=== PATIENT | male | born 1955 | race Caucasian/White ===

== ENCOUNTER → 2020-06-13 | Outpatient (CLI) | payer MEDICARE, OTHER ==
[~2020-06-13] VITALS: Ht 182 cm; Wt 84.0 kg
[~2020-06-13] MED LIST: CATHETER FLUSH 10 ML SYR IV PRN
[2020-06-13 13:43] VITALS: BP 171/80
[2020-06-13 13:59] VITALS: BP 175/57
--- NOTE | 2020-06-13 15:59 | Cardiology Stress Test Report ---
Stress Test Report Date of Procedure/Referring: Date of Procedure: Jun 13, 2020 PCP Shobha Mo Admitting Physician No,Local Physician Indications: Coronary artery disease Baseline Heart Rate: 78 Baseline Blood Pressure: Blood Pressure Systolic: 175 Blood Pressure Diastolic: 57 Vital Signs Date Time Temp Pulse Resp B/P (MAP) Pulse Ox O2 Delivery O2 Flow Rate FiO2 06/13/20 13:43 74 19 171/80 (110) 99 06/13/20 13:59 Room Air Baseline Vital Signs Vital Signs Date Time Temp Pulse Resp B/P (MAP) Pulse Ox O2 Delivery O2 Flow Rate FiO2 06/13/20 13:43 74 19 171/80 (110) 99 06/13/20 13:59 Room Air Baseline EKG: Baseline EKG: normal sinus rhythm Summary: After explaining the procedure and details to the patient, he signed the consent and was brought to the stress nuclear laboratory. Patient exercised on standard John protocol, EKG, heart rate and blood pressure were monitored continuously, resting and stress doses of radio tracer were injected, imaging was acquired and reviewed in the short axis, horizontal long axis and vertical long axis views Patient was able to exercise for a total of [ 8] minutes on John protocol, METs 9.7 Maximum heart rate 136 Maximum blood pressure 225/80 Stress EKG, Minimal nondiagnostic changes Recovery EKG, Return to baseline TID: 0.8 SSS: 1 SDS: 1 EF: 56 Conclusion: 1. Fair exercise tolerance for total of 8 minutes on standard John protocol total of 9.7 METs achieving 88 percent of maximum expected heart rate 2. Severe hypertensive response to exercise with peak blood pressure 225/80 returned to baseline during recovery 3. Minimal nondiagnostic EKG changes with exercise returned to baseline during recovery 4. No ischemia or infarction on SPECT images 5. Normal left ventricular size, EF 56 percent LEONARDO CALHOUN MD Jun 13, 2020 15:59
== END ==
LOC: CARD 12:00
PROVIDERS: ATTEND Physician Assistant
DX: I25.10 Atherosclerotic heart disease of native coronary artery without angina pectoris (principal); I65.23 Occlusion and stenosis of bilateral carotid arteries; I10 Essential (primary) hypertension; E78.2 Mixed hyperlipidemia; Z72.0 Tobacco use
CPT/HCPCS: 78452; 93017; 93306; A9502

== ENCOUNTER → 2021-06-12 | Outpatient (CLI) | payer MEDICARE, OTHER ==
[~2021-06-12] VITALS: Ht 183 cm; Wt 84.0 kg
[2021-06-12 11:14] LABS: ALBUMIN 4.5 GM/DL (3.2-4.5); POTASSIUM 4.7 MMOL/L (3.6-5.0)
[2021-06-12 11:15] LABS: CALCIUM 10.3 MG/DL (8.5-10.1)
[2021-06-12 11:16] LABS: TOTAL PROTEIN 7.8 GM/DL (6.4-8.2)
[2021-06-12 11:18] LABS: BILIRUBIN,TOTAL 0.4 MG/DL (0.1-1.0)
[2021-06-12 11:20] LABS: CREATININE SERUM 0.97 MG/DL (0.60-1.30)
[2021-06-12 13:02] VITALS: BP 163/82
--- NOTE | 2021-06-12 15:10 | Cardiology Stress Test Report ---
Stress Test Report Date of Procedure/Referring: Date of Procedure: Jun 12, 2021 PCP Leonardo Stanley MD Admitting Physician No,Local Physician Indications: CP Baseline Heart Rate: 71 Baseline Blood Pressure: Blood Pressure Systolic: 163 Blood Pressure Diastolic: 82 Vital Signs Date Time Temp Pulse Resp B/P (MAP) Pulse Ox O2 Delivery O2 Flow Rate FiO2 06/12/21 13:02 79 18 163/82 (109) 97 Room Air Baseline Vital Signs Vital Signs Date Time Temp Pulse Resp B/P (MAP) Pulse Ox O2 Delivery O2 Flow Rate FiO2 06/12/21 13:02 79 18 163/82 (109) 97 Room Air Baseline EKG: Baseline EKG: NSR Summary: After explaining the procedure and details to the patient, he signed the consent and was brought to the stress nuclear laboratory. Patient exercised on standard John protocol, EKG, heart rate and blood pressure were monitored continuously, resting and stress doses of radio tracer were injected, imaging was acquired and reviewed in the short axis, horizontal long axis and vertical long axis views Patient was able to exercise for a total of 8 minutes on John protocol, METs 8.7 Maximum heart rate 127 Maximum blood pressure 215/76 Stress EKG, Minimal nondiagnostic changes Recovery EKG, Return to baseline TID: 0.8 SSS: 13 SDS: 9 EF: 56 Conclusion: 1. Fair exercise tolerance for a total of 8 minutes on standard John protocol, 8.7 METS achieving 83% of maximal expected heart rate 2. Abnormal EKG response to exercise with [address] depression horizontal in lead II, 3, aVF, V4, V5, V6. Return to baseline during late recovery 3. Severe hypertensive response to exercise with peak blood pressure 215/76, return to baseline during recovery 4. Reversible ischemia involving the whole inferior wall and inferolateral wall 5. Normal left ventricular size, EF 56% LEONARDO STANLEY MD Jun 12, 2021 15:10
== END ==
LOC: CARD 10:30
PROVIDERS: ATTEND Internal Medicine Cardiovascular Disease
DX: R07.9 Chest pain, unspecified (principal); I10 Essential (primary) hypertension
CPT/HCPCS: 78452; 80053; 80061; 93017; 93306; A9502; 36415

== ENCOUNTER 2021-06-19 11:00 | Day surgery (SDC) | payer MEDICARE, OTHER ==
[~2021-06-19] VITALS: Ht 185 cm; Wt 87.5 kg
[2021-06-19] VITALS (20 sets, daily range): BP systolic 141–208; BP diastolic 73–122
--- OUTSIDE RECORDS SUMMARY | 2021-06-19 08:48 | XMS REPORT ---
Author Author Maximiliano Levine Organization [facility] ou Address [address] [place], [place] [id number] Care Team Providers Care Cosmetic Assembler Name Role Phone Maximiliano Levine PCP Maximiliano Levine PreferredProvider Allergies and Adverse Reactions Name Reaction Notes NO KNOWN DRUG ALLERGIES Plan of Treatment Not available. Medications Active Name Start Date Estimated Completion Date SIG Co mments aspirin 81 mg oral tablet,delayed release (DR/EC) take 2 tablets (162 mg) by oral route once daily atenolol 25 mg oral tablet take 1 tablet (25 mg) by oral route once daily amlodipine 5 mg oral tablet take 1 tablet (5 mg) by oral route once daily Bevespi Aerosphere 9-4.8 mcg inhalation HFA aerosol inhaler 2017 inhale 2 puffs by inhalation route 2 times per day in the morning and evening Symbicort 160-4.5 mcg/actuation inhalation HFA aerosol inhaler inhale 2 puffs by inhalation route 2 times per day in the morning and evening lidocaine 5 % topical cream 02/02/2020 appl y to affected area(s) by topical route daily as needed cyclobenzaprine 10 mg oral tablet 02/02/2020 take 1 tablet by oral route 3 times a day lidocaine 5%, ketoprofen 10 % 05/02/2020 apply bid losartan 25 mg oral tablet 11/22/2020 11/17/2021 TAKE ONE TABLET BY MOUTH ONCE DAILY Vitamin C 1,000 mg oral tablet take 1 tab let by oral route daily Celebrex oral capsule 200 mg 01/03/2021 12/29/2021 faustina e 1 capsule (200 mg) by oral route once daily for 30 days clopidogrel 75 mg tablet 01/21/2021 04/16/2022 TAKE 1 TABLET BY MOUTH ONCE DAILY FOR 90 DAYS atorvastatin 40 mg tablet 01/21/2021 04/16/2022 TAKE 1 TABLET BY MOUTH ONCE DAILY FOR 90 DAYS hydrocodone-acetaminophen 10-325 mg oral tablet 04/17/2021 take 1 tablet by oral route every 4 hours as needed for pain ivermectin 3 mg oral tablet 05/09/2021 08/02/2022 TAKE SIX TABLETS BY MOUTH every SEVEN DAYS Name Start Date Expiration Date SIG Comments Medrol (George) 4 mg oral tablets,dose pack 11/18/2010 11/29/19 take as directed for 5 days meloxicam 15 mg oral tablet 06/03/2011 10/31/2011 take 1 tablet (15 mg) by oral route once daily /PRN pain Levaquin 500 mg oral tablet 07/21/2011 08/04/2011 take 1 tablet (500 mg) by oral route once daily for 7 days flurbiprofen 100 mg oral tablet 12/09/2011 12/03/2012 take 1 tablet (100 mg) by oral route 2 times per day for 90 days gentian beverly 1 % topical solution 12/09/2011 12/16/2011 apply to affected area by topical route 2 times a day for 7 days Nexium 40 mg oral capsule,delayed release(DR/EC) 10/15/2012 10/15/2012 take 1 capsule by oral route 2 times a day Protonix tablet 40 mg 11/03/2012 12/03/2012 one tablet twice da shanta pantoprazole 40 mg oral tablet,delayed release (DR/EC) 12/06/2012 01/05/2013 TAKE 1 TABLET BY MOUTH TWICE DAILY Carafate 1 gram oral tablet 01/04/2013 01/19/2013 take 1 tablet (1 gram) by oral route 4 times per day on an empty stomach 1 hour before meals and at bedtime for 15 days Zofran (as hydrochloride) 4 mg oral tablet 03/22/20132012 take 2 tablets (8 mg) by oral route every 12 hours for 2 days Lidoderm 5 % topical adhesive patch,medicated 02/16/2014 apply 2 patches by transdermal route once daily (May wear up to 12hours.) for 30 days Zithromax Z-George 250 mg oral tablet 05/17/2014 05/22/2014 take 2 tablets (500 mg) by oral route once daily for 1 day then 1 tablet (250 mg) by oral route once daily for 4 days Mobic 15 mg oral tablet 09/21/2014 10/21/2014 take 1 t ablet (15 mg) by oral route once daily for 30 days Levaquin 500 mg oral tablet 01/04/2016 01/11/2016 take 1 tablet (500 mg) by oral route once daily for 7 days Dexilant 60 mg oral capsule,biphase delayed releas 05/15/2016 05/25/2016 take 1 capsule (60 mg) by oral route once daily for 10 days simethicone oral docusate sodium 100 mg oral capsule Lipitor 40 mg oral tablet 06/05/2016 10/03/2016 take 1 tablet (40 mg) by oral route once daily for 30 days Levaquin 500 mg oral tablet 10/09/2016 10/16/2016 take 1 tablet (500 mg) by oral route once daily for 7 days Zithromax Z-George 250 mg oral tablet 04/09/2017 04/14/2017 take 2 tablets (500 mg) by oral route once daily for 1 day then 1 tablet (250 mg) by oral route once daily for 4 days [place] 10-325 mg oral tablet 01/25/2019 take 1 tablet by oral route every 4 hours as needed for pain Lipitor 40 mg oral tablet 11/01/2019 01/24/2021 take 1 tablet (40 mg) by oral route once daily for 90 days nystatin-triamcinolone 100,000-0.1 unit/gram-% topical ointm ent 11/01/2019 04/17/2020 apply to the affected area(s) by topical route 2 times per day for 14 days Plavix 75 mg oral tablet 11/01/2019 01/24/2021 take 1 tablet (75 mg) by oral route once daily for 90 days Discontinued Name Start Date Discontinued Date SIG Comments diclofenac sodium 75 mg oral tablet,delayed release (DR/EC) 07/27/2009 take 1 tablet (75 mg) by oral route 2 times per day PRN pain UPSETTING PT'S STOMACH cyclobenzaprine 10 mg oral tablet 04/30/2010 1/2 - 1 tab BID prn pain Motrin 800 mg oral tablet 02/01/2010 06/03/2011 take 1 tablet (800 mg) by oral route 3 times per day with food lisinopril 10 mg oral tablet 02/01/2010 04/30/2010 faustina e 1 tablet (10 mg) by oral route once daily nystatin-triamcinolone 100,000-0.1 unit/g-% topical cream 04/12/20 10 12/09/2011 apply to the affected area(s) by topical route 2 times per day in the morning and evening Lortab 5-500 mg oral tablet 12/09/2011 take 1 tablet by oral route every 6 hours as needed for pain Cortisporin 3.5-10,000-1 mg/mL-unit/mL-% otic solution 05/29/2011 05/29/2011 instill 4 drops into affected ear(s) by otic route 3 times per day deleted Lamisil 250 mg oral tablet 07/15/2011 12/09/2011 take 1 tablet (250 mg) by oral route once daily nystatin-triamcinolone 100,000-0.1 unit/g-% topical cream 12/09/19 12 05/17/2014 apply to the affected area(s) by topical route 2 times per day in the morning and evening hydrocodone-acetaminophen 5-500 mg oral tablet 03/02/201209/11/2011 TAKE 1 TABLET BY MOUTH EVERY 6 HOURS NEEDED FOR PAIN Taking Percocet Protonix 40 mg Oral tablet,delayed release (DR/EC) 11/03/2012 11/03/2012 one tablet twice daily deleted prednison 03/22/2013 05/17/2014 60 x 3, 40 x 3, 20 x 3, 10 x 4 meclizine 25 mg oral tablet 04/08/2013 05/17/2014 take 1 tablet (25 mg) by oral route 4 times per day as needed ondansetron HCl 4 mg oral tablet 03/23/2014 01/09/2015 TAKE 1 TABLET BY MOUTH EVERY 4 HOURS NEEDED FOR NAUSEA ofloxacin 0.3 % otic drops 05/05/2014 05/17/2014 insti ll 10 drops (1.5 mg) into right ear by otic route 2 times per day Percocet 10-325 mg oral tablet 07/27/2014 09/22/2014 t isela 1 tablet by oral route every 6 hours as needed Pennsaid 1.5 % topical drops 09/21/2014 12/11/2014 annelise ly 40 drops to the right knee by topical route 4 times per day clonidine HCl 0.1 mg oral tablet 01/09/2015 09/04/2015 take 1 tablet (0.1 mg) by oral route once daily Valium 5 mg oral tablet 01/09/2015 09/04/2015 take 1 t ablet by oral route 2 times a day as needed promethazine-codeine 6.25-10 mg/5 mL oral syrup 01/04/2016 12/03/2017 take 5 milliliters by oral route every 6 hours as needed, not to exceed 30 mL in 24 hours Augmentin 875-125 mg oral tablet 09/15/2017 12/03/2017 take 1 tablet by oral route every 12 hours for 7 days Bevespi Aerosphere 9-4.8 mcg inhalation HFA aerosol inhaler 01/2802/09/2018 INHALE 2 PUFFS TWICE DAILY IN THE MORNING AND EVENING Problem List Description Status Onset Shoulder Syndrome Active 07/27/2009 Bicipital tenosynovitis Active 07/27/2009 Dyspepsia Active 05/20/2016 Gas Active 05/20/2016 Bloating Active 05/20/2016 Hiatal hernia Active 05/20/2016 Abdominal pain Active 05/20/2016 Encounter for screening colonoscopy Active 05/08 Vital Signs Date Time BP-Sys(mm[Hg] BP-Noemi(mm[Hg]) HR(bpm) RR(rpm) Temp WT HT HC BMI BSA BMI Percentile O2 Sat(%) 05/09/2021 1:21:00 PM 160 mm[Hg] 80 mm[Hg] 96 {beats}/min 20 rpm 97.7 F 194.5 lbs 72 in 26.3787 kg/m2 2.117 m2 97 % 03/07/2021 1:26:00 PM 138 mm[Hg] 70 mm[Hg] 92 {beats}/min 20 rpm 97.9 F 194.5 lbs 72 in 26.38 kg/m2 2.12 m2 97 % 01/03/2021 3:08:00 PM 130 mm[Hg] 70 mm[Hg] 91 {beats}/min 18 rpm 97.7 F 190 lbs 72 in 25.7684 kg/m2 2.0924 m2 97 % 12/13/2020 1:33:00 PM 140 mm[Hg] 84 mm[Hg] 82 {beats}/min 20 rpm 98.2 F 194.25 lbs 72 in 26.34 kg/m2 2.12 m2 97 % 10/01/2020 1:46:00 PM 140 mm[Hg] 82 mm[Hg] 96 {beats}/min 16 rpm 97.7 F 194 lbs 72 in 26.3109 kg/m2 2.1143 m2 97 % 07/26/2020 9:59:00 AM 162 mm[Hg] 80 mm[Hg] 92 {beats}/min 18 rpm 97.9 F 193.125 lbs 72 in 26.19 kg/m2 2.11 m2 97 % 05/01/2020 9:43:00 AM 180 mm[Hg] 78 mm[Hg] 92 {beats}/min 18 rpm 98.6 F 190.375 lbs 72 in 25.8192 kg/m2 2.0945 m2 98 % 02/02/2020 10:23:00 AM 158 mm[Hg] 90 mm[Hg] 88 {beats}/min 18 rpm 96.4 F 193.25 lbs 72 in 26.21 kg/m2 2.11 m2 98 % 11/01/2019 3:07:00 PM 138 mm[Hg] 80 mm[Hg] 81 {beats}/min 18 rpm 98.1 F 193 lbs 72 in 26.1752 kg/m2 2.1088 m2 96 % 08/18/2019 2:12:00 PM 120 mm[Hg] 70 mm[Hg] 90 {beats}/min 18 rpm 97.9 F 196.25 lbs 72 in 26.62 kg/m2 2.13 m2 96 % 06/03/2019 10:57:00 AM 148 mm[Hg] 88 mm[Hg] 99 {beats}/min 18 rpm 98.8 F 190.125 lbs 72 in 25.7853 kg/m2 2.0931 m2 98 % 04/12/2019 10:21:00 AM 142 mm[Hg] 78 mm[Hg] 82 {beats}/min 16 rpm 98.1 F 193 lbs 72 in 26.18 kg/m2 2.11 m2 97 % 02/08/2019 2:27:00 PM 120 mm[Hg] 70 mm[Hg] 99 {beats}/min 18 rpm 97.5 F 199.125 lbs 72 in 27.0059 kg/m2 2.142 m2 95 % 12/27/2018 2:15:00 PM 120 mm[Hg] 72 mm[Hg] 77 {beats}/min 16 rpm 97.5 F 202 lbs 72 in 27.40 kg/m2 2.16 m2 96 % 10/11/2018 10:55:00 AM 140 mm[Hg] 86 mm[Hg] 82 {beats}/min 16 rpm 97.7 F 202 lbs 72 in 27.3958 kg/m2 2.1575 m2 97 % 07/23/2018 9:24:00 AM 122 mm[Hg] 72 mm[Hg] 96 {beats}/min 16 rpm 98.1 F 201 lbs 73 in 26.52 kg/m2 2.17 m2 98 % 04/15/2018 10:16:00 AM 128 mm[Hg] 84 mm[Hg] 81 {beats}/min 18 rpm 98.2 F 198.125 lbs 72 in 26.8703 kg/m2 2.1367 m2 95 % 01/18/2018 11:04:00 AM 158 mm[Hg] 90 mm[Hg] 80 {beats}/min 18 rpm 98.1 F 98 % 12/03/2017 10:26:00 AM 122 mm[Hg] 70 mm[Hg] 75 {beats}/min 16 rpm 96.6 F 191.25 lbs 72 in 25.9379 kg/m2 2.0993 m2 97 % 09/15/2017 10:13:00 AM 118 mm[Hg] 80 mm[Hg] 91 {beats}/min 20 rpm 96.3 F 193.5 lbs 72 in 26.24 kg/m2 2.11 m2 97 % 08/21/2017 10:32:00 AM 112 mm[Hg] 74 mm[Hg] 93 {beats}/min 20 rpm 97.6 F 190.25 lbs 72 in 25.8023 kg/m2 2.0938 m2 97 % 06/09/2017 9:08:00 AM 138 mm[Hg] 74 mm[Hg] 78 {beats}/min 18 rpm 96.3 F 190.5 lbs 72 in 25.84 kg/m2 2.10 m2 98 % 03/17/2017 2:23:00 PM 102 mm[Hg] 50 mm[Hg] 57 {beats}/min 14 rpm 96.8 F 190 lbs 72 in 25.7684 kg/m2 2.0924 m2 97 % 01/05/2017 3:09:00 PM 98 mm[Hg] 62 mm[Hg] 68 {beats}/min 18 rpm 96.1 F 1 89 lbs 72 in 25.63 kg/m2 2.09 m2 98 % 10/02/2016 10:42:00 AM 116 mm[Hg] 68 mm[Hg] 79 {beats}/min 18 rpm 96.9 F 186.4 lbs 72 in 25.2801 kg/m2 2.0725 m2 96 % 08/20/2016 10:37:00 AM 128 mm[Hg] 62 mm[Hg] 88 {beats}/min 18 rpm 97.6 F 186 lbs 72 in 25.23 kg/m2 2.07 m2 96 % 06/05/2016 9:38:00 AM 126 mm[Hg] 80 mm[Hg] 69 {beats}/min 18 rpm 98 F 188 lbs 72 in 25.4971 kg/m2 2.0813 m2 98 % 05/20/2016 2:18:00 PM 125 mm[Hg] 89 mm[Hg] 92 {beats}/min 20 rpm 97.4 F 189.5 lbs 72 in 25.70 kg/m2 2.09 m2 05/15/2016 8:25:00 AM 124 mm[Hg] 80 mm[Hg] 88 {beats}/min 18 rpm 97 F 193 lbs 72 in 26.1752 kg/m2 2.1088 m2 97 % 03/24/2016 2:38:00 PM 110 mm[Hg] 74 mm[Hg] 78 {beats}/min 18 rpm 96.8 F 182 lbs 72 in 24.68 kg/m2 2.05 m2 97 % 02/28/2016 10:05:00 AM 118 mm[Hg] 76 mm[Hg] 68 {beats}/min 71 rpm 97.1 F 180 lbs 72 in 24.4121 kg/m2 2.0366 m2 97 % 01/04/2016 8:56:00 AM 124 mm[Hg] 82 mm[Hg] 92 {beats}/min 18 rpm 96.1 F 180 lbs 72 in 24.41 kg/m2 2.04 m2 96 % 12/10/2015 8:51:00 AM 136 mm[Hg] 82 mm[Hg] 68 {beats}/min 18 rpm 97.2 F 183 lbs 18 % 09/06/2015 8:35:00 AM 112 mm[Hg] 62 mm[Hg] 76 {beats}/min 18 rpm 96.5 F 183 lbs 72 in 24.819 kg/m2 2.0535 m2 96 % 09/04/2015 8:47:00 AM 118 mm[Hg] 74 mm[Hg] 90 {beats}/min 18 rpm 96.4 F 183 lbs 72 in 24.82 kg/m2 2.05 m2 96 % 06/21/2015 8:51:00 AM 130 mm[Hg] 80 mm[Hg] 93 {beats}/min 16 rpm 97.8 F 183 lbs 72 in 24.819 kg/m2 2.0535 m2 97 % 05/11/2015 10:39:00 AM 135 mm[Hg] 90 mm[Hg] 77 {beats}/min 16 rpm 98.1 F 184 lbs 72 in 24.95 kg/m2 2.06 m2 95 % 02/05/2015 8:56:00 AM 122 mm[Hg] 84 mm[Hg] 88 {beats}/min 18 rpm 96.7 F 195 lbs 72 in 26.4465 kg/m2 2.1197 m2 01/09/2015 9:12:00 AM 158 mm[Hg] 94 mm[Hg] 84 {beats}/min 18 rpm 97.1 F 193 lbs 72 in 26.18 kg/m2 2.11 m2 12/11/2014 3:19:00 PM 126 mm[Hg] 64 mm[Hg] 83 {beats}/min 18 rpm 97.4 F 193.125 lbs 72 in 26.1922 kg/m2 2.1095 m2 96 % 09/21/2014 1:39:00 PM 124 mm[Hg] 72 mm[Hg] 106 {beats}/min 18 rpm 97.2 F 195 lbs 72 in 26.45 kg/m2 2.12 m2 97 % 07/27/2014 8:41:00 AM 140 mm[Hg] 92 mm[Hg] 90 {beats}/min 18 rpm 96.1 F 192.125 lbs 73 in 25.3476 kg/m2 2.1186 m2 99 % 05/17/2014 3:14:00 PM 138 mm[Hg] 78 mm[Hg] 76 {beats}/min 18 rpm 96.9 F 195.125 lbs 73 in 25.74 kg/m2 2.14 m2 97 % 05/05/2014 9:11:00 AM 140 mm[Hg] 90 mm[Hg] 72 {beats}/min 18 rpm 98 F 192 lbs 73 in 25.3311 kg/m2 2.1179 m2 02/16/2014 8:34:00 AM 136 mm[Hg] 78 mm[Hg] 84 {beats}/min 18 rpm 97.1 F 191 lbs 73 in 25.20 kg/m2 2.11 m2 12/01/2013 2:51:00 PM 122 mm[Hg] 78 mm[Hg] 78 {beats}/min 16 rpm 98 F 197 lbs 73 in 25.9908 kg/m2 2.1453 m2 09/16/2013 8:32:00 AM 132 mm[Hg] 80 mm[Hg] 88 {beats}/min 18 rpm 97.8 F 190 lbs 73 in 25.07 kg/m2 2.11 m2 06/23/2013 1:26:00 PM 120 mm[Hg] 80 mm[Hg] 80 {beats}/min 18 rpm 97.7 F 187 lbs 73 in 24.6714 kg/m2 2.0902 m2 04/08/2013 11:01:00 AM 102 mm[Hg] 70 mm[Hg] 78 {beats}/min 18 rpm 97.5 F 180 lbs 73 in 23.75 kg/m2 2.05 m2 98 % 03/22/2013 3:08:00 PM 92 mm[Hg] 64 mm[Hg] 94 {beats}/min 20 rpm 97.1 F 177 lbs 73 in 23.3521 kg/m2 2.0335 m2 02/21/2013 9:13:00 AM 130 mm[Hg] 78 mm[Hg] 68 {beats}/min 16 rpm 97.4 F 191 lbs 73 in 25.20 kg/m2 2.11 m2 01/06/2013 3:06:00 PM 110 mm[Hg] 64 mm[Hg] 60 {beats}/min 18 rpm 97.4 F 183 lbs 73 in 24.1437 kg/m2 2.0677 m2 11/03/2012 3:26:00 PM 120 mm[Hg] 80 mm[Hg] 85 {beats}/min 18 rpm 96.1 F 184.5 lbs 73 in 24.34 kg/m2 2.08 m2 96 % 09/28/2012 3:15:00 PM 120 mm[Hg] 80 mm[Hg] 69 {beats}/min 18 rpm 96.6 F 183 lbs 73 in 24.1437 kg/m2 2.0677 m2 99 % 09/27/2012 10:00:00 AM 112 mm[Hg] 82 mm[Hg] 60 {beats}/min 18 rpm 98 F 182 lbs 73 in 24.01 kg/m2 2.06 m2 06/30/2012 2:13:00 PM 145 mm[Hg] 98 mm[Hg] 68 {beats}/min 18 rpm 04/13/2012 1:41:00 PM 96 mm[Hg] 60 mm[Hg] 88 {beats}/min 18 rpm 98.1 F 1 82 lbs 73 in 24.0118 kg/m2 2.062 m2 03/11/2012 3:58:00 PM 114 mm[Hg] 76 mm[Hg] 68 {beats}/min 18 rpm 98.4 F 184 lbs 73 in 24.28 kg/m2 2.07 m2 12/09/2011 2:00:00 PM 124 mm[Hg] 82 mm[Hg] 60 {beats}/min 18 rpm 97.8 F 183 lbs 73 in 24.1437 kg/m2 2.0677 m2 07/21/2011 2:15:00 PM 108 mm[Hg] 70 mm[Hg] 68 {beats}/min 20 rpm 97.8 F 182 lbs 07/15/2011 2:51:00 PM 118 mm[Hg] 82 mm[Hg] 78 {beats}/min 18 rpm 97.8 F 182 lbs 73 in 24.0118 kg/m2 2.062 m2 06/03/2011 1:30:00 PM 130 mm[Hg] 80 mm[Hg] 64 {beats}/min 16 rpm 97 F 183.25 lbs 73 in 24.18 kg/m2 2.07 m2 05/29/2011 3:10:00 PM 102 mm[Hg] 64 mm[Hg] 60 {beats}/min 18 rpm 98.4 F 184 lbs 03/13/2011 1:57:00 PM 132 mm[Hg] 88 mm[Hg] 78 {beats}/min 20 rpm 98.2 F 180 lbs 78 in 20.8009 kg/m2 2.1197 m2 01/21/2011 8:59:00 AM 108 mm[Hg] 70 mm[Hg] 78 {beats}/min 20 rpm 97.9 F 185 lbs 11/18/2010 2:01:00 PM 142 mm[Hg] 88 mm[Hg] 72 {beats}/min 20 rpm 98.4 F 187 lbs 04/30/2010 7:53:00 AM 124 mm[Hg] 76 mm[Hg] 78 {beats}/min 16 rpm 97.8 F 182.25 lbs 04/12/2010 8:51:00 AM 140 mm[Hg] 88 mm[Hg] 68 {beats}/min 20 rpm 98.2 F 185 lbs 02/01/2010 9:05:00 AM 150 mm[Hg] 102 mm[Hg] 80 {beats}/min 18 rpm 97.3 F 192.375 lbs 73 in 25.3806 kg/m2 2.12 m2 07/27/2009 7:52:00 AM 142 mm[Hg] 80 mm[Hg] 64 {beats}/min 14 rpm 96.4 F 192 lbs Social History Name Description Comments lives alone Occasional Exercise x 8yrs High school graduate Denies illicit substance abuse Has never used alcohol 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 Tobacco Current every day smoker History of Procedures Date Ordered Description Order Status 06/21/2015 12:00 AM COMPLETE CBC W/AUTO DIFF WBC Reviewed 06/21/2015 12:00 AM COMPREHEN METABOLIC PANEL Reviewed 06/21/2015 12:00 AM LIPID PANEL Reviewed 06/03/2011 12:00 AM INJ TENDON SHEATH/LIGAMENT Reviewed 06/03/2011 12:00 AM Kenalog per 10Mg Im-[facility]#[address]-47(Da vis) Reviewed 09/04/2015 12:00 AM X-RAY EXAM OF SHOULDER Reviewed 09/04/2015 12:00 AM RADIOLOGIC EXAMINATION KNEE 1/2 VIEWS Re viewed 07/15/2011 12:00 AM COMPLETE CBC W/AUTO DIFF WBC Reviewed 07/15/2011 12:00 AM COMPREHEN METABOLIC PANEL Reviewed 07/15/2011 12:00 AM GLYCOSYLATED HEMOGLOBIN TEST Reviewed 07/15/2011 12:00 AM Depo-Medrol 80 Mg ND [id number] robert Reviewed 07/15/2011 12:00 AM Decadron Inj. per 1mg-Nd [id number] hennyinger Reviewed 07/15/2011 12:00 AM Prostate Cancer Screening Reviewed 12/10/2015 12:00 AM Decadron, Per 1 Mg [facility]# [address]-92 Re viewed 12/10/2015 12:00 AM Depo-Medrol, Per 80 Mg [facility]#[address]-17 Reviewed 01/04/2016 12:00 AM Rocephin 1 gram [facility]#6007-1210-02 Reviewe d 01/04/2016 12:00 AM Kenalog, Per 10 Mg [facility]#2033-5311-28 Revi ewed 03/24/2016 12:00 AM COMPLETE CBC W/AUTO DIFF WBC Reviewed 03/24/2016 12:00 AM COMPREHEN METABOLIC PANEL Reviewed 03/24/2016 12:00 AM ASSAY THYROID STIM HORMONE Reviewed 03/24/2016 12:00 AM VITAMIN B-12 Reviewed 03/24/2016 12:00 AM ASSAY OF LIPASE Reviewed 05/15/2016 12:00 AM CHEST X-RAY 2VW FRONTAL&LATL Reviewed 05/20/2016 12:00 AM ECHO EXAM OF ABDOMEN Reviewed 08/20/2016 12:00 AM Decadron 8mg Injection, [facility] Medicare Rev iewed 08/20/2016 12:00 AM Depo-Medrol 80 Mg Injection, [facility] Medicai d Reviewed 04/13/2012 12:00 AM Kenalog 40 Mg Im/C'melita Reviewed 08/22/2012 12:00 AM INJ TENDON SHEATH/LIGAMENT Reviewed 08/22/2012 12:00 AM Kenalog per 10Mg Im-[facility]#[address]-28(Da vis) Reviewed 01/18/2018 12:00 AM Decadron 8mg Injection Reviewed 01/18/2018 12:00 AM Depo-Medrol 80mg Injection Reviewed 04/15/2018 12:00 AM B12 1000mcg Injection Reviewed 04/08/2013 12:00 AM MRI BRAIN STEM W/O & W/DYE Reviewed 10/11/2018 12:00 AM Kenalog 40mg Injection Reviewed 06/23/2013 12:00 AM Kenalog 40 Mg Im/C'melita Reviewed 02/08/2019 12:00 AM COMPLETE CBC W/AUTO DIFF WBC Returned 02/08/2019 12:00 AM COMPREHEN METABOLIC PANEL Returned 02/08/2019 12:00 AM GLYCOSYLATED HEMOGLOBIN TEST Returned 02/08/2019 12:00 AM ASSAY THYROID STIM HORMONE Returned 02/08/2019 12:00 AM VITAMIN B-12 Returned 02/08/2019 12:00 AM Kenalog 40mg Injection Reviewed 02/09/2019 12:00 AM EXTRACRANIAL BILAT STUDY Returned 08/18/2019 12:00 AM Kenalog 40mg Injection Reviewed 11/02/2019 12:[address] ABD & PELV W/CONTRAST Returned 11/02/2019 12:00 AM METABOLIC PANEL TOTAL CA Returned 05/01/2020 12:00 AM Kenalog 40mg Injection Reviewed 07/26/2020 12:00 AM Kenalog 40mg Injection Reviewed 04/12/2010 12:00 AM COMPLETE CBC W/AUTO DIFF WBC Reviewed 04/12/2010 12:00 AM COMPREHEN METABOLIC PANEL Reviewed 04/12/2010 12:00 AM LIPID PANEL Reviewed 04/12/2010 12:00 AM Prostate Cancer Screening Reviewed 04/30/2010 12:00 AM INJ TENDON SHEATH/LIGAMENT Reviewed 04/30/2010 12:00 AM Kenalog Lp-[id number] CESARIO Reviewe d 04/30/2010 12:00 AM INJ TENDON SHEATH/LIGAMENT Reviewed 03/07/2021 12:00 AM COMPLETE CBC W/AUTO DIFF WBC Returned 03/07/2021 12:00 AM COMPREHEN METABOLIC PANEL Returned 03/07/2021 12:00 AM ASSAY THYROID STIM HORMONE Returned 03/07/2021 12:00 AM ASSAY OF NATRIURETIC PEPTIDE Returned 03/07/2021 12:00 AM ASSAY OF IRON Returned 03/07/2021 12:00 AM IRON BINDING TEST Returned 03/07/2021 12:00 AM ASSAY OF TRANSFERRIN Returned 03/07/2021 12:00 AM VITAMIN B-12 Returned 03/07/2021 12:00 AM Kenalog 40mg Injection, [facility] Medicare Rev iewed 07/27/2009 12:00 AM INJECTION(S); SINGLE TENDON ORIGIN/INSER TION Reviewed 07/27/2009 12:00 AM Kenalog 10 Mg Im- Reviewed 05/17/2014 12:00 AM THER/PROPH/DIAG INJ SC/IM Reviewed 05/17/2014 12:00 AM Decadron, Per 1 Mg [facility]# [address]-70 Re viewed 05/17/2014 12:00 AM Depo-Medrol, Per 80 Mg [facility]#9639-0157-56 Reviewed 01/21/2011 12:00 AM THER/PROPH/DIAG INJ SC/IM Reviewed 01/21/2011 12:00 AM 4 m g Decadron Inj. per 1mg-[facility] [id number]-[id number] Reviewed 01/21/2011 12:00 AM Depo-Medrol 80 Mg [facility] [id number] robert Reviewed 01/09/2015 12:00 AM Decadron 8 mg [facility]# [address]-86 Reviewe d 01/09/2015 12:00 AM Depo-Medrol 80 mg [facility]#[address]-25 Revi ewed Results Summary Date and Description Results 02/01/2010 9:07 AM Colonoscopy-Women and Men ov er 50 Declined 04/13/2010 9:50 AM PSA TOTAL 0.70 ng/mLTRIGLYCE RIDES 373.0 mg/dLCHOLESTEROL 296.0 mg/dLHDL 36.0 mg/dLTOT CHOL/HDL 8.2 LDL (CALC) 185.0 mg/dLGLUCOSE 109.0 mg/dLSODIUM 137.0 mmol/LPOTASSIUM 4.10 mmol/LCHLORIDE 106.0 mmol/LCO2 24.0 mmol/LBUN 13.0 mg/dLCREATININE 0.90 mg/dLSGOT/AST 17.0 IU/LSGPT/ALT 22.0 IU/LALK PHOS 56.0 IU/LTOTAL PROTEIN 7.30 g/dLALBUMIN 4.10 g/dLTOTAL BILI 0.40 mg/dLCALCIUM 9.60 mg/dLAGE 54 GFR NonAA 87 GFR AA 105 eGFR >60 mL/min/1.73 m2eGFR AA* >60 WBC 7.5 RBC 4.23 HGB 13.30 g/dLHCT 38.70 %MCV 92.0 fLMCH 31.40 pgMCHC 34.40 g/dLRDW SD 43 RDW CV 12.80 %MPV 9.90 fLPLT 222 NRBC# 0.00 NRBC% 0.0 %NEUT 51.60 %%LYMP 35.10 %%MONO 8.60 %%EOS 3.80 %%BASO 0.90 %#NEUT 3.85 #LYMP 2.62 #MONO 0.64 #EOS 0.28 #BASO 0.07 MANUAL DIFF NOT IND 07/15/2011 3:37 PM WBC 8.8 RBC 4.03 HGB 13.40 g /dLHCT 37.30 %MCV 93.0 fLMCH 33.30 pgMCHC 35.90 g/dLRDW SD 43 RDW CV 12.60 %MPV 10.30 fLPLT 253 NRBC# 0.00 NRBC% 0.0 %NEUT 54.10 %%LYMP 34.20 %%MONO 8.20 %%EOS 2.50 %%BASO 1.0 %#NEUT 4.78 #LYMP 3.02 #MONO 0.72 #EOS 0.22 #BASO 0.09 MANUAL DIFF NOT IND GLUCOSE 94.0 mg/dLSODIUM 140.0 mmol/LPOTASSIUM 4.10 mmol/LCHLORIDE 108.0 mmol/LCO2 24.0 mmol/LBUN 20.0 mg/dLCREATININE 0.80 mg/dLSGOT/AST 20.0 IU/LSGPT/ALT 21.0 IU/LALK PHOS 69.0 IU/LTOTAL PROTEIN 7.40 g/dLALBUMIN 4.30 g/dLTOTAL BILI 0.30 mg/dLCALCIUM 9.70 mg/dLAGE 55 GFR NonAA 100 GFR AA 121 eGFR >60 mL/min/1.73 m2eGFR AA* >60 PSA TOTAL 0.820 ng/mLGLYCOHEMOGLOBIN A1C 5.20 % 06/21/2015 1:55 PM WBC 8.9 RBC 4.09 HGB 13.30 g /dLHCT 38.30 %MCV 94.0 fLMCH 32.50 pgMCHC 34.70 g/dLRDW SD 46 RDW CV 13.30 %MPV 9.90 fLPLT 268 NRBC# 0.00 NRBC% 0.0 %NEUT 51.20 %%LYMP 35.40 %%MONO 9.70 %%EOS 3.0 %%BASO 0.70 %#NEUT 4.57 #LYMP 3.15 #MONO 0.86 #EOS 0.27 #BASO 0.06 MANUAL DIFF NOT IND GLUCOSE 95.0 mg/dLSODIUM 136.0 mmol/LPOTASSIUM 4.60 mmol/LCHLORIDE 105.0 mmol/LCO2 23.0 mmol/LBUN 13.0 mg/dLCREATININE 1.0 mg/dLSGOT/AST 18.0 IU/LSGPT/ALT 16.0 IU/LALK PHOS 67.0 IU/LTOTAL PROTEIN 7.10 g/dLALBUMIN 4.40 g/dLTOTAL BILI 0.40 mg/dLCALCIUM 10.10 mg/dLAGE 59 GFR NonAA 76 GFR AA 92 eGFR >60 mL/min/1.73 m2eGFR AA* >60 TRIGLYCERIDES 268.0 mg/dLCHOLESTEROL 243.0 mg/dLHDL 44.0 mg/dLTOT CHOL/HDL 5.5 LDL (CALC) 145.0 mg/dL 03/24/2016 3:42 PM WBC 8.7 RBC 4.19 HGB 13.50 g /dLHCT 38.60 %MCV 92.0 fLMCH 32.20 pgMCHC 35.0 g/dLRDW SD 43 RDW CV 12.80 %MPV 9.80 fLPLT 277 NRBC# 0.00 NRBC% 0.0 %NEUT 49.30 %%LYMP 34.30 %%MONO 10.70 %%EOS 4.20 %%BASO 1.0 %#NEUT 4.27 #LYMP 2.97 #MONO 0.93 #EOS 0.36 #BASO 0.09 MANUAL DIFF NOT IND GLUCOSE 96.0 mg/dLSODIUM 138.0 mmol/LPOTASSIUM 4.40 mmol/LCHLORIDE 105.0 mmol/LCO2 24.0 mmol/LBUN 18.0 mg/dLCREATININE 1.0 mg/dLSGOT/AST 20.0 IU/LSGPT/ALT 22.0 IU/LALK PHOS 67.0 IU/LTOTAL PROTEIN 7.50 g/dLALBUMIN 4.50 g/dLTOTAL BILI 0.30 mg/dLCALCIUM 10.30 mg/dLAGE 60 GFR NonAA 76 GFR AA 92 eGFR >60 mL/min/1.73 m2eGFR AA* >60 LIPASE 24.0 U/LTSH 0.880 uIU/mLVITAMIN B12 854.0 pg/mL History Of Immunizations Not available. 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 7:58AM Subacromial Bursitis Jul 27 2009 7:58AM Bicipital tenosynovitis Jul 27 2009 7:58AM Shoulder Syndrome Jul 27 2009 7:58AM Shoulder Syndrome 07/27/2009 Bicipital tenosynovitis 07/27/2009 Thoracic Spine Pain Essential Hypertension Feb 01 2010 9:09AM Pain in joint; shoulder region Feb 01 2010 9:09AM Low Back Pain Apr 12 2010 8:58AM Lateral epicondylitis Apr 12 2010 8:58AM Hypertension, Benign Essential Apr 12 2010 8:58AM Lateral epicondylitis Apr 30 2010 8:38AM Lateral epicondylitis Apr 30 2010 8:00AM Hyperlipidemia, unspecified Nov 18 2010 2:04PM Low Back Pain Nov 18 2010 2:04PM Dyspepsia 05/20/2016 Gas 05/20/2016 Bloating 05/20/2016 Hiatal hernia 05/20/2016 Abdominal pain 05/20/2016 Encounter for screening colonoscopy 05/20/2016 Low Back Pain Jan 21 2011 9:01AM Osteoarthritis Jan 21 2011 9:01AM Pain in joint; shoulder region, Left Mar 13 2011 1:58PM Sprains and strains of upper arm tendon Jun 03 2011 1:28PM Pain in joint; shoulder region, Left Jun 03 2011 1:28PM Shoulder Syndrome Jun 04 2011 9:33AM Acute Otitis Externa, Bilateral May 29 2011 3:11PM Hyperglycemia Jul 15 2011 2:50PM Sinusitis Jul 15 2011 2:50PM Screening For Prostate Cancer Jul 15 2011 2:50PM Sinusitis Jul 21 2011 2:14PM Low Back Pain Dec 09 2011 2:05PM Otitis Externa, Chronic Dec 09 2011 2:05PM Low Back Pain Mar 11 2012 4:01PM Sinusitis Apr 13 2012 1:49PM Shoulder Syndrome Aug 22 2012 11:49AM Esophageal Reflux Sep 27 2012 10:04AM Osteoarthritis Sep 27 2012 10:04AM Abdominal pain, epigastric Sep 28 2012 3:22PM Acute gastritis Nov 03 2012 3:32PM Chest Pain Jan 06 2013 3:11PM Low Back Pain Feb 21 2013 9:13AM Coronary Artery Disease Feb 21 2013 9:13AM Concussion; with no loss of consciousness Mar 22 2013 3:14P M Concussion With Loss Of Consciousness Apr 08 2013 11:05AM Vertigo Apr 08 2013 11:05AM Low Back Pain Jun 23 2013 1:33PM Concussion Jun 23 2013 1:33PM Chronic back pain Sep 16 2013 8:40AM Low Back Pain Dec 01 2013 2:54PM Low Back Pain Feb 16 2014 8:42AM Chronic pain May 05 2014 9:13AM Upper Respiratory Infections May 17 2014 3:16PM Chronic pain Jul 27 2014 8:46AM Chronic back pain Sep 21 2014 1:42PM Low Back Pain Sep 21 2014 1:42PM Chronic pain Dec 11 2014 3:21PM Osteoarthritis Jan 09 2015 9:16AM Chronic pain Jan 09 2015 9:16AM Osteoarthritis Feb 05 2015 9:03AM Chronic pain Feb 05 2015 9:03AM Chronic back pain May 11 2015 10:41AM Annual physical exam Jun 21 2015 8:52AM Shoulder pain, right Sep 04 2015 8:59AM Shoulder pain, left Sep 04 2015 8:59AM Knee pain, left Sep 04 2015 8:59AM Knee pain, right Sep 04 2015 8:59AM Low Back Pain Sep 04 2015 8:59AM Knee pain, chronic Sep 06 2015 8:39AM Shoulder pain, acute, left Sep 06 2015 2:14PM Shoulder pain, acute, right Sep 06 2015 2:14PM Chronic back pain Dec 10 2015 8:54AM Pneumonia Jan 04 2016 9:00AM Chronic back pain Feb 28 2016 10:09AM Abdominal Pain Mar 24 2016 2:47PM Fatigue Mar 24 2016 2:47PM Bruit of right carotid artery Mar 24 2016 2:47PM Dyspnea May 15 2016 8:31AM Hiatal hernia May 15 2016 8:31AM Abdominal pain May 20 2016 2:12PM Gas May 20 2016 2:12PM Bloating May 20 2016 2:12PM Dyspepsia May 20 2016 2:12PM Hiatal hernia May 20 2016 2:12PM Encounter for screening colonoscopy May 20 2016 2:12PM Abdominal Pain May 27 2016 3:11PM Bloating May 27 2016 3:11PM CAD (coronary artery disease) Jun 05 2016 9:43AM Low back pain Aug 20 2016 10:39AM Left shoulder pain Aug 21 2016 9:41AM Bronchitis Oct 02 2016 10:46AM Low back pain Oct 02 2016 10:46AM Low back pain Jan 05 2017 3:16PM Fatigue Jan 05 2017 3:16PM Low back pain Mar 17 2017 2:26PM Low back pain Jun 09 2017 9:10AM Other chronic pain Jun 09 2017 9:10AM Chronic obstructive pulmonary disease with acute exace rbation Aug 21 2017 10:34AM Low Back Pain Aug 21 2017 10:34AM Low Back Pain Sep 15 2017 10:18AM Acute suppurative otitis media of left e ar without spontaneous rupture of tympanic membrane, recurrence not specified Sep 15 2017 10:18AM Dorsalgia, unspecified Dec 03 2017 10:27AM Other chronic pain Dec 03 2017 10:27AM Angioedema Jan 18 2018 11:06AM Chronic pain Jan 18 2018 11:06AM Anemia, Vitamin B12 Deficiency Apr 15 2018 10:18AM Dorsalgia, unspecified Apr 15 2018 10:18AM Other chronic pain Apr 15 2018 10:18AM Chronic Obstructive Pulmonary Disease Apr 15 2018 10:18AM Chronic Obstructive Pulmonary Disease Jul 23 2018 9:31AM Low Back Pain Jul 23 2018 9:31AM Chronic pain Jul 23 2018 9:31AM Chronic Obstructive Pulmonary Disease Oct 11 2018 11:01AM Low Back Pain Oct 11 2018 11:01AM Chronic pain Oct 11 2018 11:01AM Chronic pain Dec 27 2018 2:24PM Low Back Pain Feb 08 2019 2:32PM Near syncope Feb 08 2019 2:32PM Vertigo Feb 08 2019 2:32PM Fatigue Feb 08 2019 2:32PM Hyperglycemia Feb 08 2019 2:32PM Near syncope Feb 09 2019 12:48PM Chronic Obstructive Pulmonary Disease Apr 12 2019 10:24AM CAD (coronary artery disease) Apr 12 2019 10:24AM CAD (coronary artery disease) Jun 03 2019 10:57AM Chronic pain Jun 03 2019 10:57AM Chronic obstructive pulmonary disease with acute exace rbation Aug 18 2019 2:12PM Low Back Pain Aug 18 2019 2:12PM Seborrheic keratoses Nov 01 2019 3:06PM Chronic Obstructive Pulmonary Disease Nov 01 2019 3:06PM Chronic pain Nov 01 2019 3:06PM Rectal pain Nov 02 2019 12:16PM Rectal discomfort Nov 02 2019 12:16PM Blood tests prior to treatment or procedure Nov 02 2019 12:3 4PM Chronic pain Feb 02 2020 10:23AM Back pain Feb 03 2020 7:45AM Chronic pain May 01 2020 9:40AM Shoulder pain, right May 01 2020 9:40AM Back pain May 01 2020 11:15AM Chronic Obstructive Pulmonary Disease Jul 26 2020 9:58AM Onychomycosis Jul 26 2020 9:58AM Chronic pain Jul 26 2020 9:58AM Shoulder pain Jul 26 2020 9:58AM Chronic Obstructive Pulmonary Disease Oct 01 2020 1:50PM Shoulder pain Oct 01 2020 1:50PM CAD (coronary artery disease) Oct 01 2020 1:50PM Chronic pain Oct 01 2020 1:50PM Chronic Obstructive Pulmonary Disease Dec 13 2020 1:35PM Chronic pain Dec 13 2020 1:35PM Shoulder pain, right Jan 03 2021 3:06PM Chronic Obstructive Pulmonary Disease Jan 03 2021 3:06PM Anemia Mar 07 2021 2:00PM Coronary Artery Disease Mar 07 2021 2:00PM Fatigue Mar 07 2021 2:00PM Hypercalcemia Mar 07 2021 2:00PM CAD (coronary artery disease) Mar 07 2021 1:25PM Pain in right shoulder Mar 07 2021 1:25PM Pain in left shoulder Mar 07 2021 1:25PM Joint pain Mar 07 2021 4:18PM Chronic Obstructive Pulmonary Disease Mar 07 2021 1:25PM Low Back Pain Mar 07 2021 1:25PM Chronic Obstructive Pulmonary Disease May 09 2021 1:21PM Low Back Pain May 09 2021 1:21PM CAD (coronary artery disease) May 09 2021 1:21PM Pain in right shoulder Sep 2020 1:21PM Pain in left shoulder Sep 2020 1:21PM Payers Insurance Name Company Name Plan Name Plan Number Policy Number [place] Group Number Start Date Medicare RHC Medicare RHC [id number] N/ A Cigna Medicare Supplement Cigna Medicare Supplement [id number] Monday, 2018 Medicare Part A Medicare - Lab/Xray [id number] N/A [employer] [place] [employer] [id number] Monday, October 08, 2018 BCBS Bcbs [facility] [id number] July 29, 2014 BCBS Bcbs [facility] [id number] September Cigna Cigna [id number] June BCBS [employer]cbs [facility] [id number] N/A Cign[employer] Cigna [id number] N/A History of Encounters Visit Date Visit Type Provider 05/09/2021 Office visit Maximiliano Levine MD 03/07/2021 Office visit Maximiliano Levine MD 01/07/2021 Laboratory Valencia Ashley APR N 01/03/2021 Office visit Maximiliano Levine MD 12/13/2020 Office visit Maximiliano Levine MD 10/01/2020 Office visit Maximiliano Levine MD 07/26/2020 Office visit Maximiliano Levine MD 05/01/2020 Office visit Maximiliano Levine MD 02/02/2020 Office visit Maximiliano Levine MD 11/01/2019 Office visit Maximiliano Levine MD 08/18/2019 Office visit Maximiliano Levine MD 06/03/2019 Office visit Maximiliano Levine MD 04/12/2019 Office visit Maximiliano Levine MD 02/08/2019 Office visit Maximiliano Levine MD 12/27/2018 Office visit Maximiliano Levine MD 10/11/2018 Office visit Maximiliano Levine MD 07/23/2018 Office visit Maximiliano Levine MD 04/15/2018 Office visit Maximiliano Levine MD 01/18/2018 Office visit Maximiliano Levine MD 12/03/2017 Office visit Maximiliano Levine MD 09/15/2017 Office visit Maximiliano Levine MD 08/21/2017 Office visit Maximiliano Levine MD 06/09/2017 Office visit Maximiliano Levine MD 03/17/2017 Office visit Maximiliano Levine MD 01/05/2017 Office visit Maximiliano Levine MD 10/02/2016 Office visit Maximiliano Levine MD 08/20/2016 Office visit Maximiliano Levine MD 06/05/2016 Office visit Maximiliano Levine MD 05/28/2016 Hospital Janice Rossi MD 05/26/2016 Hospital Julius Quinn DO 05/20/2016 Office visit Julius Quinn DO 05/15/2016 Office visit Maximiliano Levine MD 03/24/2016 Office visit 03/24/2016 Office visit Maximiliano Levine MD 02/28/2016 Office visit Maximiliano Levine MD 01/04/2016 Office visit Maximiliano Levine MD 12/10/2015 Office visit Maximiliano Levine MD 09/06/2015 Office visit Maximiliano Levine MD 09/04/2015 Office visit Maximiliano Levine MD 06/21/2015 Office visit Lv Renae APR N 05/11/2015 Office visit Maximiliano Levine MD 02/05/2015 Office visit Maximiliano Levine MD 01/09/2015 Office visit Maximiliano Levine MD 12/11/2014 Office visit Maximiliano Levine MD 09/21/2014 Office visit Maximiliano Levine MD 07/27/2014 Office visit Maximiliano Levine MD 05/23/2014 Hospital Janice Rossi MD 05/17/2014 Office visit Sharlene 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 05/05/2014 Office visit Maximiliano Levine MD 02/16/2014 Office visit Maximiliano Levine MD 12/01/2013 Office visit Maximiliano Levine MD 09/16/2013 Office visit Maximiliano Levine MD 07/20/2013 Hospital Janice Rossi MD 06/23/2013 Office visit Maximiliano Levine MD 04/08/2013 Office visit Maximiliano Levine MD 03/22/2013 Office visit Maximiliano Levine MD 02/21/2013 Office visit Maximiliano Levine MD 01/06/2013 Office visit Maximiliano Levine MD 11/03/2012 Office visit Cyril Vizcarra MD 10/28/2012 Hospital Cyril Vizcarra MD 09/28/2012 Office visit Cyril Vizcarra MD 09/27/2012 Office visit Maximiliano Levine MD 06/30/[address] MD 04/13/2012 Office visit Maximiliano Levine MD 03/11/2012 Office visit Maximiliano Levine MD 12/09/2011 Office visit Maximiliano Levine MD 07/21/2011 Office visit Maximiliano Levine MD 07/15/2011 Office visit Maximiliano Levine MD 06/03/[address] MD 05/29/2011 Office visit Maximiliano Levine MD 03/13/2011 Office visit Maximiliano Levine MD 01/21/2011 Office visit Maximiliano Levine MD 11/18/2010 Office visit Maximiliano Levine MD 04/30/[address] MD 04/12/2010 Office visit Maximiliano Levine MD 02/01/2010 Office visit Manasa Sawyer MD 07/27/[address] MD 07/06/[address] MD 06/08/[address] MD
[2021-06-19 09:18] LABS: HEMATOCRIT 40 % (40-54); HEMOGLOBIN 13.4 g/dL (13.3-17.7); MEAN CORPUSCULAR HEMOGLOBIN 33 pg (25-34); MEAN CORPUSCULAR HGB CONC 33 g/dL (32-36); MEAN CORPUSCULAR VOLUME 99 fL (80-99); MEAN PLATELET VOLUME 9.9 fL (9.0-12.2); PLATELET COUNT 291 10^3/uL (130-400); WHITE BLOOD COUNT 10.9 10^3/uL (4.3-11.0)
--- NOTE | 2021-06-19 09:21 | Diagnostic Imaging Report ---
INDICATION: Abnormal myocardial examination. Evaluation prior to heart catheterization/angiography. History of sternotomy. TECHNIQUE: Single view chest 9:18 AM. CORRELATION STUDY: None FINDINGS: Prior sternotomy and coronary bypass changes. Coronary artery stent over the right heart border. Heart size, mediastinum and vasculature overall within normal limits. Additional endovascular stent in the base the neck on the right of midline. The lungs are clear with no consolidating infiltrate. There is no significant effusion or pneumothorax. IMPRESSION: 1. Negative for acute abnormality of the chest. Prior sternotomy changes. Dictated by: Dictated on workstation # [id number]
[2021-06-19 09:31] LABS: INR 0.9 (0.8-1.4); PROTHROMBIN TIME PATIENT 12.2 SEC (12.2-14.7)
[2021-06-19 09:38] LABS: ALBUMIN 4.4 GM/DL (3.2-4.5); BILIRUBIN,TOTAL 0.5 MG/DL (0.1-1.0); CALCIUM 10.1 MG/DL (8.5-10.1); CREATININE SERUM 1.04 MG/DL (0.60-1.30); POTASSIUM 4.1 MMOL/L (3.6-5.0); TOTAL PROTEIN 7.7 GM/DL (6.4-8.2)
--- NOTE | 2021-06-19 10:58 | Conscious Sedation/ASA ---
Conscious Sedation Pre-Proced Time 10:57 ASA Score 3 For ASA 3 and 4: Consider anesthesia and medical clearance. Also, for patients with a history of failed moderate sedation consider anesthesia. Airway Lungs Heart ASA score ASA 1: a normal healthy patient ASA 2: a patient with a mild systemic disease (mid diabetes, controlled hypertension, obesity x ASA 3: a patient with a severe systemic disease that limits activity (angina, COPD, prior Myocardial infarction) ASA 4: a patient with an incapacitating disease that is a constant threat to life (CHF, renal failure) ASA 5: a moribund patient not expected to survive 24 hrs. (ruptured aneurysm) ASA 6: a declared brain- patient whose organs are being harvested. For emergent operations, add the letter E after the classification Mallampati Classification Grade 3 Sedation Plan Analgesia, Amnesia, Plan communicated to team members, Discussed options with patient/fam, Discussed risks with patient/fam The patient is an appropriate candidate to undergo the planned procedure, sedation, and anesthesia. The patient immediately re-assessed prior to indication. LEONARDO CALHOUN MD Jun 19, 2021 10:58
[~2021-06-19 11:00] MED LIST changes: +ASCO1500 PO; +ASPI-1238 PO; +ATOR40TA70 PO; +BUDE10.7 IH; -CATHETER FLUSH 10 ML SYR IV PRN; +CELE-63 PO; +CHOL-34 PO; +DICL20GE TP; +FLUT9.9S NS; +HEParin (CATH LAB) 2,000 ML IV ONE; +HYDR-3820 PO; +IVER3TAB2 PO; +LIDOCAINE 1% INJ 20 ML 20 ML VIAL ONE; +LOSA50TA63 PO; +MIDAZOLAM 5 MG/5 ML (VERSED) VIAL ONE; +NS IV 1000 ML 1,000 ML IV SCH; +NS IV 1000 ML 1,000 ML ONE; +ZINC220T3 PO; +[UNRECOGNIZED DRUG - OTHER] PO; +fentaNYL INJ 100 MCG/2 ML AMP ONE
[2021-06-19] MEDS ORDERED: HEParin 1000 UNIT/ML (10ML VIAL) FOR BOLUS ONE (11:46)
[2021-06-19] MEDS ORDERED: NITRO DRIP 25000 MCG/D5W 250 ML IV ONE (11:47)
[2021-06-19] MEDS ORDERED: CLOPIDOGREL 300 MG (PLAVIX) TABLET PO ONE (12:08)
[2021-06-19] MEDS ORDERED: ASPIRIN 325 MG (5 GR) TABLET ONE (12:08)
[2021-06-19] MEDS ORDERED: NON-FORMULARY MEDICATION 1 EA EA (Fluticasone Propionate (Flonase Allergy Relief) 1 SPRAY) NS PRN (12:30)
[2021-06-19] MEDS ORDERED: BREZTRI 160/9/4.8 MCG INHALER IH PRN (12:30)
[2021-06-19] MEDS ORDERED: PATIENT MAY USE OWN MEDS, ALL PO SCH (12:30)
[2021-06-19] MEDS ORDERED: IVERMECTIN PO SCH (12:30)
[2021-06-19] MEDS ORDERED: DICLOFENAC 1% GEL 100 GM (VOLTAREN) TUBE TP PRN (12:30)
--- NOTE | 2021-06-19 12:32 | Cardiac Cath Report ---
Cardiac Cath Report Physician (s)/Lead Miner (s) Physician LEONARDO CALHOUN MD Pre-Procedure Diagnosis Pre-Procedure Diagnosis: CAD Post-Procedure Note Procedure Start Date: Jun 19, 2021 Name of Procedure: Left heart catheterization Vein graft angiogram RYDER angiogram Balloon angioplasty to the vein graft Findings/Procedure Note PROCEDURE NOTE: 65 years old gentleman with history of coronary artery disease, CABG, multiple intervention in the past. Had an abnormal stress test, scheduled for cardiac catheterization possible PTCA After explaining the procedure to the patient, all pros and cons were explained, all questions were answered. The patient signed the consent and then he was placed on the cardiac catheterization laboratory. Groin was prepped SL fashion local anesthesia was used. Sheath placed in the right femoral artery. Jeri right and left catheter were used to access the coronary system.Vein Graft evaluated. RYDER evaluated. Pigtail was used to access the left ventricular cavity. Left ventriculogram was not done, pressure was measured. Patient has severe stenosis in the vein graft that is a jump graft to the diagonal artery and first and second obtuse marginal branch. Had 2 area of stenosis 1 severe in-stent restenosis in the mid vein graft then an area at the anastomosis point with the first diagonal artery with severe stenosis beyond that area. Patient was given 6000 units of heparin, FR guide was advanced to the vein graft then BMW wire was advanced and parked distally, balloon angioplasty at multiple segment was done using 4.0 x 20 balloon with multiple inflation. Excellent results. Initially there was watermelon seeding to the balloon with the first inflation then after positioning the balloon appropriately we had excellent results then I did balloon angioplasty for the in-stent restenosis within the vein graft with excellent results. At the end of the procedure the sheath was removed. 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 is a jump graft vein graft to the diagonal artery then to the first and second obtuse marginal branch with severe in-stent stenosis in the midportion and severe to critical stenosis distally successful balloon angioplasty using 4 x 20 balloon with excellent results, did not require stenting due to the fact that the area of the stenosis was at the site of anastomosis point with the diagonal artery and it carry high risk of occluding that branch Lower vein graft is the vein graft to the right coronary artery with patent stents, slow flow due to small vessel disease in the right coronary artery LV Gram was not done, pressure was measured CONCLUSION: 1. Severe stenosis in the vein graft/jump graft to the diagonal artery, first and second obtuse marginal branches within the stent then beyond the stent area at the anastomosis point with the first diagonal artery, successful balloon angioplasty using trek 4 x 20 with excellent results, I avoided putting stent at that area due to the presence of the anastomosis with the diagonal then continuation to the obtuse marginal branch. 2. Patent vein graft to the right coronary artery with slow flow due to small vessel disease 3. Patent RYDER to LAD DISCUSSION AND RECOMMENDATION: Continue to maximize medical therapy, educated on avoiding tobacco product limiting carbohydrate intake, continue on statin. Anesthesia Type: Conscious Sedation Estimated blood loss (mL): 15 ml Contrast Amount: 96 ml Total Radiation Dose: 725 mGy Post-Procedure Diagnosis Post-operative diagnosis: Chest pain Coronary artery disease Hypertension Hyperlipidemia LEONARDO CALHOUN MD Jun 19, 2021 12:31
[2021-06-19] MEDS: NS IV 1000 ML 1,000 ML IV SCH ×2 (12:35→22:51)
[2021-06-19] MEDS ORDERED: LOSARTAN 50 MG (COZAAR) TAB PO ONE (14:15)
[2021-06-19] MEDS ORDERED: FLUTICASONE NASAL SPRAY (FLONASE) 16 GM BTL NS PRN (15:00)
[2021-06-19] MEDS ORDERED: NON-FORMULARY MEDICATION 1 EA EA (Celecoxib 200 MG) PO SCH (18:00)
[2021-06-19] MEDS ORDERED: CELECOXIB 200 MG CAPSULE PO SCH (18:00)
[2021-06-19] MEDS ORDERED: ASCORBIC ACID PO SCH (18:00)
[2021-06-19] MEDS ORDERED: VITAMIN D3 25 MCG (1,000 UNITS) TABLET PO SCH (18:00)
[2021-06-19] MEDS ORDERED: ASCORBIC ACID (VIT C) 500 MG TABLET PO SCH (18:00)
[2021-06-19] MEDS ORDERED: QUERCETIN 500 MG PO SCH (18:00)
[2021-06-20 00:13] VITALS: BP 116/79
[2021-06-20 03:32] VITALS: BP 170/79
[2021-06-20 05:06] LABS: HEMATOCRIT 35 % (40-54); HEMOGLOBIN 11.7 g/dL (13.3-17.7); MEAN CORPUSCULAR HEMOGLOBIN 32 pg (25-34); MEAN CORPUSCULAR HGB CONC 34 g/dL (32-36); MEAN CORPUSCULAR VOLUME 96 fL (80-99); PLATELET COUNT 246 10^3/uL (130-400); WHITE BLOOD COUNT 8.7 10^3/uL (4.3-11.0)
[2021-06-20 05:24] LABS: POTASSIUM 3.9 MMOL/L (3.6-5.0)
[2021-06-20 05:25] LABS: CALCIUM 9.4 MG/DL (8.5-10.1)
[2021-06-20 05:30] LABS: CREATININE SERUM 0.86 MG/DL (0.60-1.30)
[2021-06-20] MEDS ORDERED: CLOP75TA28 PO (06:47)
--- NOTE | 2021-06-20 06:48 | Discharge Inst-Post CATH ---
Discharge Inst-CATH/EP Problems Reviewed?: Yes Post Cardiac Cath/EP D/C Inst Follow Up/Plan Appointment with Dr Stanley in 2-4 weeks <b>CARDIAC CATH/EP PROCEDURE DISCHARGE INSTRUCTIONS</b> ACTIVITY * Go Home directly and rest. * Limit activity of the leg (or wrist if it was used) for 7 days including aerobics, swimming, jogging, bicycling, etc. * Restrict stair-climbing for 7 days if possible, if not, climb up with your non-cath leg, then bring together on the same step. * Avoid lifting, pushing, pulling or excessive movement of the affected extremity for 7 days. * Customary sexual activity may be resumed after 2 days-use caution not to use a position that strains or causes pain to the affected extremity. * No driving for 24 hours. * NO SMOKING. * Avoid straining for bowel movements for 7 days. * Gentle walking on level ground is allowed. * Returning to work will depend on the type of procedure and the results. Your doctor will discuss this with you. CALL YOUR DOCTOR FOR ANY OF THE FOLLOWING: *If bleeding from the puncture site occurs- Apply gentle pressure to site with clean cloth and call your doctor or EMS. * If a knot or lump forms under the skin, increases in size, or causes pain. * If bruising appears to be worsening or moving further down your leg instead of disappearing. * Temperature above 101 F. CARE OF YOUR GROIN INCISION; * Bruising or purple discoloration of the skin near the puncture site is common. * You may shower only, no bathtub bathing for 5 days. Be careful to avoid slipping as your leg may feel stiff. * If a closure device was used on your femoral artery, please see the attached guide regarding care of the device and your leg. * Leave dressing on FOR 24 hours. CARE OF YOUR WRIST INCISION; * Bruising or purple discoloration of the skin near the puncture site is common. * You may shower. * DO NOT submerge wrist. * Leave dressing on FOR 24 hours. LEONARDO STANLEY MD Jun 20, 2021 06:48
[2021-06-20 07:30] VITALS: BP 125/80
[2021-06-20] MEDS: NS IV 1000 ML 1,000 ML IV SCH (08:31)
--- NOTE | 2021-06-20 08:42 | Cardiology Progress Note ---
Subjective Date Seen by Provider: Jun 20, 2021 Time Seen by Provider: 08:40 Subjective/Events-last exam Patient was seen and evaluated, feeling well, no chest pain or shortness of breath, groin is healing well Review of Systems General: No Chills, No Night Sweats, No Fatigue, No Malaise, No Appetite, No Other HEENT: No Head Aches, No Visual Changes, No Eye Pain, No Ear Pain, No Dysphasia, No Sinus Congestion, No Post Nasal Drip, No Sore Throat, No Other Pulmonary: No Dyspnea, No Cough, No Pleuritic Chest Pain, No Other Cardiovascular: No: Chest Pain, Palpitations, Orthopnea, Paroxysmal Noc. Dyspnea, Edema, Lt Headedness, Other Objective-Cardiology Exam Last Set of Vital Signs Vital Signs 06/20/21 06/20/21 07:30 08:04 Temp 37.4 Pulse 84 Resp 15 B/P (MAP) 125/80 (95) Pulse Ox 96 O2 Delivery Room Air I&O Intake and Output 06/20/21 00:00 Intake Total 250 ml Balance 250 ml Intake Oral 250 ml # Voids 2 General: Alert, Oriented X3, Cooperative HEENT: Atraumatic, PERRLA Neck: Supple, No JVD, No Thyromegaly Lungs: Clear to Auscultation, Normal Air Movement Heart: Regular Rate, Normal S1, Normal S2, No Murmurs Abdomen: Normal Bowel Sounds, Soft, No Tenderness, No Hepatosplenomegaly, No Masses Extremities: No Clubbing, No Cyanosis, No Edema, Normal Pulses, No Tenderness/Swelling Skin: No Rashes, No Breakdown, No Significant Lesion Neuro: Normal Gait, Normal Speech, Strength at 5/5 X4 Ext, Normal Tone, Sensation Intact Psych/Mental Status: Mental Status NL, Mood NL Results Lab Laboratory Tests 06/19/21 09:06 06/20/21 04:52 A/P-Cardiology Admission Diagnosis Chest pain Coronary artery disease Hypertension Hyperlipidemia Assessment/Plan Chest pain, shortness of breath, reporting improvement Coronary artery disease, extensive disease, status post cardiac catheterization and balloon angioplasty to vein graft Call 1. Severe stenosis in the vein graft/jump graft to the diagonal artery, first and second obtuse marginal branches within the stent then beyond the stent area at the anastomosis point with the first diagonal artery, successful balloon angioplasty using trek 4 x 20 with excellent results, I avoided putting stent at that area due to the presence of the anastomosis with the diagonal then continuation to the obtuse marginal branch. 2. Patent vein graft to the right coronary artery with slow flow due to small vessel disease 3. Patent RYDER to LAD Hypertension, continue current medication monitor Hyperlipidemia, monitor lipids LEONARDO CALHOUN MD Jun 20, 2021 08:42
[2021-06-20] MEDS ORDERED: CLOPIDOGREL 75 MG (PLAVIX) TABLET PO SCH (09:00)
[2021-06-20] MEDS ORDERED: LOSARTAN 50 MG (COZAAR) TAB PO SCH (09:00)
[2021-06-20] MEDS ORDERED: ASPIRIN E.C. 81 MG (ECOTRIN) TAB PO SCH (09:00)
== END 2021-06-20 09:30 | disposition home or self-care (01) ==
LOC: CATH 11:00 → CSD 12:39 → CATH 06-20 09:30
PROVIDERS: ATTEND Internal Medicine Cardiovascular Disease
DX: I25.10 Atherosclerotic heart disease of native coronary artery without angina pectoris (principal); I10 Essential (primary) hypertension; F17.210 Nicotine dependence, cigarettes, uncomplicated; E78.2 Mixed hyperlipidemia; I65.23 Occlusion and stenosis of bilateral carotid arteries; I25.2 Old myocardial infarction; Z95.1 Presence of aortocoronary bypass graft; Z79.899 Other long term (current) drug therapy; Z79.82 Long term (current) use of aspirin; Z79.891 Long term (current) use of opiate analgesic; Z79.1 Long term (current) use of non-steroidal anti-inflammatories (NSAID)
CPT/HCPCS: 71045; 80048; 80053; 80061; 85027 ×2; 85610; 85730; 87081; 92937; 93005; 93459; C1725; C1760; C1769; C1887; C1894; 36415

== ENCOUNTER → 2022-04-30 | Outpatient (CLI) | payer MEDICARE, OTHER ==
[~2022-04-30] MED LIST changes: +CATHETER FLUSH 10 ML SYR IVP PRN; +CLOP75TA28 PO; -HEParin (CATH LAB) 2,000 ML IV ONE; -LIDOCAINE 1% INJ 20 ML 20 ML VIAL ONE; -MIDAZOLAM 5 MG/5 ML (VERSED) VIAL ONE; -NS IV 1000 ML 1,000 ML IV SCH; -NS IV 1000 ML 1,000 ML ONE; -fentaNYL INJ 100 MCG/2 ML AMP ONE
[2022-04-30 13:04] VITALS: BP 149/86
--- NOTE | 2022-05-01 07:04 | Cardiology Stress Test Report ---
Stress Test Report Date of Procedure/Referring: Date of Procedure: Apr 30, 2022 PCP Maximiliano Levine MD Admitting Physician Admitting Physician: Attending Physician: Leonardo Stanley MD Indications: HTN Baseline Heart Rate: 57 Baseline Blood Pressure: Blood Pressure Systolic: 149 Blood Pressure Diastolic: 86 Vital Signs Date Time Temp Pulse Resp B/P (MAP) Pulse Ox O2 Delivery O2 Flow Rate FiO2 04/30/22 13:04 78 149/86 (107) Baseline Vital Signs Vital Signs Date Time Temp Pulse Resp B/P (MAP) Pulse Ox O2 Delivery O2 Flow Rate FiO2 04/30/22 13:04 78 149/86 (107) Baseline EKG: Baseline EKG: NSR Summary: After explaining the procedure and details to the patient, he signed the consent and was brought to the stress nuclear laboratory. Patient exercised on standard John protocol, EKG, heart rate and blood pressure were monitored continuously, resting and stress doses of radio tracer were injected, imaging was acquired and reviewed in the short axis, horizontal long axis and vertical long axis views Patient was able to exercise for a total of 8 minutes on John protocol, METs 8.8 Maximum heart rate 128 Maximum blood pressure 208/76 Stress EKG, Minimal nondiagnostic changes Recovery EKG, Return to baseline TID: 1.07 SSS: 2 SDS: 2 EF: 53 Conclusion: 1. Patient was able to exercise for 8 minutes on standard John protocol, 8.8 METS achieving 84% of maximum expected heart rate 2. Appropriate heart rate response to exercise with hypertensive response to exercise peak blood pressure 208/78 3. Occasional PVCs noted during exercise with minimal nondiagnostic EKG changes. 4. Diaphragmatic attenuation with typical male pattern. No significant ischemia or infarction on SPECT images 5. Normal left ventricular size, ejection fraction 53% LEONARDO STANLEY MD May 01, 2022 07:04
== END ==
LOC: CARD 10:30
PROVIDERS: ATTEND Internal Medicine Cardiovascular Disease
DX: I11.9 Hypertensive heart disease without heart failure (principal)
CPT/HCPCS: 78452; 93017; 93306; A9502